=== PATIENT | female | born 1975 | race Caucasian/White ===

== ENCOUNTER 2016-12-14 00:36 | Emergency (ER) | payer MEDICAID ==
[~2016-12-14] VITALS: Wt 69.5 kg
[2016-12-14] MEDS ORDERED: ONDANSETRON (ODT) 4 MG TAB ODT STA (02:15)
[2016-12-14] MEDS ORDERED: IBUPROFEN 200 MG TAB PO ONE (02:30)
[2016-12-14 04:19] VITALS: BP 101/70; PULSE 87; RESP 18
[2016-12-14] MEDS ORDERED: NAPR-688 PO (04:52)
[2016-12-14] MEDS ORDERED: BEN25 PO (04:52)
[2016-12-14] MEDS ORDERED: ONDA4TAB8 PO (04:52)
--- NOTE | 2016-12-14 04:56 | ERD ---
ER Documentation Chief Complaint Date/Time DATE: 12/14/16 TIME: 04:53 Chief Complaint Rash all over the body. LEYVA and Mid AP HPI This 41-year-old female presents with a. rash that started off over her body shortly after she had eaten a type of meat that she was not sure what it is. She had an itchy rash that was on her arms trunk and legs. The rash has since resolved as has the itching. She had no difficulty breathing. She has nausea but has not vomited. She has a feeling of discomfort in her stomach. She has not had any diarrhea yet. She is otherwise healthy and has felt well all day. She denies the possibility that she could be . ROS All systems reviewed and are negative except as per history of present illness. Medications Home Meds Active Scripts Diphenhydramine Hcl* (Benadryl*) 25 Mg Cap, 25 MG PO Q6H Y for ITCHING, #10 CAP Prov:BEATRICE STARKS DO 12/14/16 Naproxen* (Naproxen*) 500 Mg Tablet, 500 MG PO BID Y for PAIN, #14 TAB Prov:BEATRICE STARKS DO 12/14/16 Ondansetron Hcl* (Zofran*) 4 Mg Tablet, 4 MG PO Q6H for NAUSEA AND/OR VOMITING, #14 TAB Prov:BEATRICE STARKS DO 12/14/16 Allergies Allergies: Coded Allergies: No Known Allergy (Unverified , 12/14/16) PMhx/Soc Medical and Surgical Hx: pt denies Medical Hx, pt denies Surgical Hx History of Surgery: No Anesthesia Reaction: No Hx Neurological Disorder: No Hx Respiratory Disorders: No Hx Cardiac Disorders: No Hx Miscellaneous Medical Probl: No Hx Alcohol Use: No Hx Substance Use: No Hx Tobacco Use: No Smoking Status: Never smoker Physical Exam Vitals Vital Signs Date Time Temp Pulse Resp B/P Pulse Ox O2 Delivery O2 Flow Rate FiO2 12/14/16 04:19 87 18 101/70 100 Room Air 12/14/16 00:44 98.4 84 20 120/73 99 Physical Exam Const: [] No distress Head: Atraumatic Eyes: Normal Conjunctiva ENT: Normal External Ears, Nose and Mouth. Neck: Full range of motion..~ No meningismus. Resp: Clear to auscultation bilaterally Cardio: Regular rate and rhythm, no murmurs Abd: Soft, very mild epigastric tenderness without guarding or rebound, non distended. Normal bowel sounds Skin: No petechiae or rashes Ext: No cyanosis, or edema Neur: Awake and alert and oriented 3, no focal deficits Psych: Normal Mood and Affect Results 24 hrs Current Medications Medications (Trade) Dose Ordered Sig/Clyde Route PRN Reason Start Time Stop Time Status Last Admin Dose Admin Ondansetron HCl (Zofran Odt) 4 mg ONCE STAT ODT 12/14/16 02:15 12/14/16 02:17 DC 12/14/16 02:33 Ibuprofen (Motrin) 400 mg ONCE ONCE PO 12/14/16 02:30 12/14/16 02:31 DC 12/14/16 02:33 Procedures/MDM Transient allergic reaction to food that had resolved. Patient was given a Zofran which cured her nausea. She is also given ibuprofen which helped with her abdominal discomfort. She is feeling well and has no symptoms currently in the emergency room. We will discharge her with as needed Benadryl as well as as needed Zofran and naproxen. Return precautions the ER if she develops any severe pain fevers or any other concerning symptoms. Departure Diagnosis: Primary Impression: Nausea Additional Impression: Allergic reaction Condition: Stable Patient Instructions: Nausea, Allergic Reaction, Other (General) Additional Instructions: Llame al doctor MAANA y juvencio roberto ZHOU PARA DENTRO DE 1-2 BURNETT.Dgale a la secretaria que nosotros le instruimos hacer esta zhou.Avise o llame si tabor condicin se empeora antes de la zhou. Regresa aqui si peor o no mejor. BEATRICE STARKS DO Dec 14, 2016 04:56
== END 2016-12-14 05:02 | disposition home or self-care (01) ==
LOC: E/R 00:36
DX: R11.0 Nausea (principal); R40.2252 Coma scale, best verbal response, oriented, at arrival to emergency department; R40.2142 Coma scale, eyes open, spontaneous, at arrival to emergency department; R40.2362 Coma scale, best motor response, obeys commands, at arrival to emergency department
CPT/HCPCS: Z7502; Z7610; 99283